=== PATIENT | female | born 1975 | race Caucasian/White ===

== ENCOUNTER → 2016-06-05 | Outpatient (CLI) | payer BC ==
--- NOTE | 2016-06-05 11:46 | DI ---
HISTORY: Gastroparesis syndrome. COMPARISON: None available. TECHNIQUE: Contiguous axial images of the abdomen and pelvis were obtained and submitted for interpr etation. FINDINGS: Limited sections of the lung bases demonstrate no focal pulmonary mass. The liver, spleen, pancreas, gallbladder, both kidneys, and both adrenal glands demonstrate no acute findings. Both kidneys enhance symmetrically. On the unenhanced images, there is no renal calculus. The visualized aorta and IVC demonstrate no acute findings. There is contrast within stomach, and in the duodenum. There is contrast within the small and large bowel. No specific evidence for SMA syndrome. However, no arterial phase images were obtained. There is a dense focus at the aortocaval window on series 6 image 50, measuring approximately 1.2 cm, that could represent either a surgical artifact, or a calcified lymph node. This is nonspecific. There is no free air or free fluid. There is no evidence of obstruction. The visualized osseous structures demonstrate no destructive abnormality. There is sclerosis at pres umed L5-S1. IMPRESSION: 1. There is contrast within stomach, and in the duodenum. There is contrast within the small and lar ge bowel. If gastroparesis is a concern, recommend nuclear medicine study. 2. No specific evidence for SMA syndrome. However, no arterial phase images were obtained. 3. Evidence of a dense focus at the aortocaval window on series 6 image 50, measuring approximately 1 .2 cm, that could represent either a surgical artifact, or a calcified lymph node. This is nonspecif ic. 4. Sclerosis is presumed at L5-S1.
== END ==
LOC: CT 08:45
PROVIDERS: ATTEND Internal Medicine Gastroenterology
DX: K31.84 Gastroparesis (principal)
CPT/HCPCS: 74170